=== PATIENT | male | born 1975 | race Caucasian/White ===

== ENCOUNTER 2022-03-06 16:47 | Emergency (ER) | payer BC, MEDICAID ==
[~2022-03-06] VITALS: Ht 188 cm; Wt 136.4 kg
[2022-03-06 17:45] LABS: BASOPHILS # (AUTO) 0.1 X10'3 (0-0.2); BASOPHILS % (AUTO) 0.8 % (0-1); EOSINOPHILS # (AUTO) 0.2 X10'3 (0-0.9); EOSINOPHILS % (AUTO) 2.1 % (0-6); HEMATOCRIT 42.2 % (42.0-52.0); HEMOGLOBIN 14.2 g/dl (14.0-17.9); LYMPHOCYTES # (AUTO) 2.2 X10'3 (1.1-4.8); LYMPHOCYTES % (AUTO) 22.4 % (21-51); MEAN CORPUSCULAR HEMOGLOBIN 28.2 PG (27.0-31.0); MEAN CORPUSCULAR HGB CONC 33.5 g/dL (33.0-36.5); MEAN CORPUSCULAR VOLUME 84.1 FL (78-98); MEAN PLATELET VOLUME 7.9 FL (7.4-10.4); MONOCYTES # (AUTO) 0.5 X10'3 (0-0.9); MONOCYTES % (AUTO) 5.5 % (2-12); NEUTROPHILS # (AUTO) 6.7 X10'3 (1.8-7.7); NEUTROPHILS % (AUTO) 69.2 % (42-75); PLATELET COUNT 317 X10'3 (140-440); RED BLOOD COUNT 5.02 X10'6 (4.70-6.10); RED CELL DISTRIBUTION WIDTH 13.8 % (11.5-14.5); WHITE BLOOD COUNT 9.8 X10'3 (4.5-11.0)
[2022-03-06 17:56] LABS: ALANINE AMINOTRANSFERASE 31 U/L (12-78); ALBUMIN 4.1 G/DL (3.4-5.0); ALKALINE PHOSPHATASE 74 IU/L (46-116); ANION GAP 9 (8-16); ASPARTATE AMINO TRANSFERASE 15 U/L (10-37); BILIRUBIN,TOTAL 0.8 MG/DL (0.1-1.0); BLOOD UREA NITROGEN 17 MG/DL (7-18); BUN/CREATININE RATIO 19.1 (5.4-32.0); CALCIUM 9.6 MG/DL (8.5-10.1); CHLORIDE 102 MMOL/L (99-107); CREATININE 0.89 MG/DL (0.60-1.10); GLUCOSE 98 MG/DL (70-104); POTASSIUM 3.7 MMOL/L (3.5-5.1); SODIUM 141 MMOL/L (135-145); TOTAL PROTEIN 8.2 G/DL (6.4-8.2); eGFR > 90 ML/MIN
[2022-03-06 21:39] VITALS: BP 122/78
== END 2022-03-06 21:40 | disposition home or self-care (01) ==
LOC: ER 16:48
DX: R07.89 Other chest pain (principal); I10 Essential (primary) hypertension
CPT/HCPCS: 36415; 71045; 80053; 83880; 84484; 85025; 93005; 99285

== ENCOUNTER 2023-01-09 03:13 | Emergency (ER) | payer BC ==
[~2023-01-09] VITALS: Ht 188 cm; Wt 145.4 kg
[2023-01-09] MEDS ORDERED: DOXYCYCLINE 100MG CAPSULE PO STA (04:08)
[2023-01-09] MEDS ORDERED: ipratropium/albuterol 3ml nebule NEB ONE (04:10)
[2023-01-09] MEDS ORDERED: BUDE180A INH (05:03)
[2023-01-09] MEDS ORDERED: ALBU6.7H14 INH (05:03)
[2023-01-09] MEDS ORDERED: DOXY-11 PO (05:03)
[2023-01-09 05:11] VITALS: BP 143/92
== END 2023-01-09 05:17 | disposition home or self-care (01) ==
LOC: ER 03:14
DX: J20.9 Acute bronchitis, unspecified (principal); I10 Essential (primary) hypertension
CPT/HCPCS: 71045; 94640; 94760; 99283

== ENCOUNTER 2023-05-02 11:51 | Emergency (ER) | payer BC ==
[~2023-05-02] VITALS: Ht 190.5 cm; Wt 153.2 kg
[~2023-05-02 11:51] MED LIST: ALBU6.7H14 INH; BUDE180A INH
[2023-05-02 12:55] LABS: BASOPHILS # (AUTO) 0.1 X10'3 (0-0.2); EOSINOPHILS # (AUTO) 0.2 X10'3 (0-0.9); EOSINOPHILS % (AUTO) 2.4 % (0-6); HEMATOCRIT 40.1 % (42.0-52.0); HEMOGLOBIN 13.5 g/dl (14.0-17.9); LYMPHOCYTES # (AUTO) 1.6 X10'3 (1.1-4.8); LYMPHOCYTES % (AUTO) 17.9 % (21-51); MEAN CORPUSCULAR HEMOGLOBIN 28.9 PG (27.0-31.0); MEAN CORPUSCULAR HGB CONC 33.7 g/dL (33.0-36.5); MEAN CORPUSCULAR VOLUME 85.6 FL (78-98); MEAN PLATELET VOLUME 8.2 FL (7.4-10.4); MONOCYTES # (AUTO) 0.5 X10'3 (0-0.9); MONOCYTES % (AUTO) 5.7 % (2-12); NEUTROPHILS # (AUTO) 6.6 X10'3 (1.8-7.7); PLATELET COUNT 282 X10'3 (140-440); RED BLOOD COUNT 4.68 X10'6 (4.70-6.10); RED CELL DISTRIBUTION WIDTH 13.9 % (11.5-14.5); WHITE BLOOD COUNT 9.1 X10'3 (4.5-11.0)
[2023-05-02 13:11] LABS: ALANINE AMINOTRANSFERASE 31 U/L (12-78); ALBUMIN 3.7 G/DL (3.4-5.0); ALKALINE PHOSPHATASE 83 IU/L (46-116); ANION GAP 7 (8-16); ASPARTATE AMINO TRANSFERASE 17 U/L (10-37); BILIRUBIN,TOTAL 0.5 MG/DL (0.1-1.0); BLOOD UREA NITROGEN 16 MG/DL (7-18); BUN/CREATININE RATIO 17.4 (10.0-20.0); CALCIUM 9.2 MG/DL (8.5-10.1); CHLORIDE 103 MMOL/L (99-107); CREATININE 0.92 MG/DL (0.60-1.10); GLUCOSE 106 MG/DL (70-104); POTASSIUM 3.5 MMOL/L (3.5-5.1); SODIUM 140 MMOL/L (135-145); TOTAL CARBON DIOXIDE 30.2 MMOL/L (24-32); TOTAL PROTEIN 7.4 G/DL (6.4-8.2); eCRCL 119 ML/MIN; eGFR 88 ML/MIN
[2023-05-02 13:20] LABS: PRO BRAIN NATRIURETIC PEPTIDE 32 PG/ML (0-125)
--- NOTE | 2023-05-02 17:30 | NUR ---
I have reviewed and agree with all interventions, assessments performed and documented by NELLY Garibay.
[2023-05-02 17:59] VITALS: BP 158/93; PULSE 86; RESP 18; TEMP 97.8; O2SAT 97
== END 2023-05-02 18:02 | disposition home or self-care (01) ==
LOC: ER 11:52
DX: R07.9 Chest pain, unspecified (principal)
CPT/HCPCS: 36415; 71045; 80053; 83880; 84484; 85025; 93005; 99285

== ENCOUNTER 2023-06-11 11:42 | Inpatient (IN) | payer BC ==
[~2023-06-11] VITALS: Ht 61 cm; Wt 154.0 kg
[2023-06-11 12:44] LABS: BASOPHILS % (AUTO) 0.5 % (0-1); EOSINOPHILS # (AUTO) 0.2 X10'3 (0-0.9); EOSINOPHILS % (AUTO) 2.5 % (0-6); HEMATOCRIT 38.4 % (42.0-52.0); HEMOGLOBIN 12.8 g/dl (14.0-17.9); LYMPHOCYTES # (AUTO) 1.9 X10'3 (1.1-4.8); LYMPHOCYTES % (AUTO) 23.3 % (21-51); MEAN CORPUSCULAR HEMOGLOBIN 28.4 PG (27.0-31.0); MEAN CORPUSCULAR HGB CONC 33.2 g/dL (33.0-36.5); MEAN CORPUSCULAR VOLUME 85.7 FL (78-98); MEAN PLATELET VOLUME 8.3 FL (7.4-10.4); MONOCYTES # (AUTO) 0.4 X10'3 (0-0.9); MONOCYTES % (AUTO) 4.8 % (2-12); NEUTROPHILS # (AUTO) 5.7 X10'3 (1.8-7.7); NEUTROPHILS % (AUTO) 68.9 % (42-75); PLATELET COUNT 259 X10'3 (140-440); RED BLOOD COUNT 4.48 X10'6 (4.70-6.10); RED CELL DISTRIBUTION WIDTH 13.7 % (11.5-14.5); WHITE BLOOD COUNT 8.3 X10'3 (4.5-11.0)
[2023-06-11 13:05] LABS: ALANINE AMINOTRANSFERASE 27 U/L (12-78); ALBUMIN 3.5 G/DL (3.4-5.0); ALBUMIN/GLOBULIN RATIO 0.9 (1.1-1.5); ALKALINE PHOSPHATASE 78 IU/L (46-116); ANION GAP 8 (8-16); ASPARTATE AMINO TRANSFERASE 17 U/L (10-37); BILIRUBIN,TOTAL 0.5 MG/DL (0.1-1.0); BLOOD UREA NITROGEN 17 MG/DL (7-18); BUN/CREATININE RATIO 17.2 (10.0-20.0); CALCIUM 8.8 MG/DL (8.5-10.1); CHLORIDE 106 MMOL/L (99-107); CREATININE 0.99 MG/DL (0.60-1.10); GLUCOSE 127 MG/DL (70-104); MAGNESIUM 2.1 MG/DL (1.5-2.4); POTASSIUM 3.5 MMOL/L (3.5-5.1); PRO BRAIN NATRIURETIC PEPTIDE 47 PG/ML (0-125); SODIUM 142 MMOL/L (135-145); TOTAL CARBON DIOXIDE 28.5 MMOL/L (24-32); TOTAL PROTEIN 7.2 G/DL (6.4-8.2); eCRCL 107 ML/MIN; eGFR 81 ML/MIN
[2023-06-11] MEDS ORDERED: morphine 2 MG/ML inj. syringe IV ONE (13:40)
[2023-06-11] MEDS ORDERED: aspirin 325mg tablet, delayed-release (Ecotrin) PO ONE (13:40)
[2023-06-11] MEDS ORDERED: nitroGLYCERIN 1gm ointment UD TP ONE (13:40)
[2023-06-11] MEDS ORDERED: magnesium Cl slow-release 64mg tablet PO PRN (15:25)
[2023-06-11] MEDS ORDERED: potassium Cl 40MEQ/1/2NS 520ml 520 ML IV PRN (15:25)
[2023-06-11] MEDS ORDERED: ondansetron/PF 4mg/2ml inj IV PRN (15:25)
[2023-06-11] MEDS ORDERED: potassium Cl 20 mEq SR tablet PO PRN ×2 (15:25)
[2023-06-11] MEDS ORDERED: mag hydrox/Alum hydrox/simeth 30ml oral suspension PO PRN (15:25)
[2023-06-11] MEDS ORDERED: magnesium 2GM in 50ml NS 50 ML IV PRN (15:25)
[2023-06-11] MEDS ORDERED: morphine 2 MG/ML inj. syringe IV PRN (15:25)
[2023-06-11] MEDS ORDERED: acetaminophen 325mg tablet PO PRN (15:25)
[2023-06-11] MEDS ORDERED: magnesium 4gm in 100ml NS 100 ML IV PRN (15:25)
[2023-06-11] MEDS ORDERED: magnesium hydroxide 30ml (MOM) UD suspension PO PRN (15:25)
[2023-06-11] MEDS: docusate sod 100mg capsule PO SCH (20:00)
[2023-06-11] MEDS: K and/or MAG REPLACEMENT MC SCH (20:03)
[2023-06-11] MEDS: heparin, porcine 5000 units/ml vial SQ SCH (20:42)
[2023-06-11 21:35] VITALS: BP 116/68; PULSE 74; RESP 18; TEMP 98.8; O2SAT 96
[2023-06-11] MEDS ORDERED: HYDR12.55 PO (22:44)
[2023-06-11] MEDS ORDERED: MULT-1168 PO (22:44)
[2023-06-11] MEDS ORDERED: LISI20TA28 PO (22:44)
[2023-06-11] MEDS ORDERED: ASPI81TA52 PO (22:44)
[2023-06-11] MEDS ORDERED: ATEN-169 PO (22:44)
[2023-06-11] MEDS ORDERED: HYDR25TA4 PO (22:56)
[2023-06-11] MEDS ORDERED: ATEN100T PO (22:56)
[2023-06-12 07:07] VITALS: BP 103/50; PULSE 75; RESP 18; TEMP 97.8; O2SAT 97
[2023-06-12 07:36] LABS: BASOPHILS # (AUTO) 0.1 X10'3 (0-0.2); BASOPHILS % (AUTO) 0.8 % (0-1); EOSINOPHILS # (AUTO) 0.2 X10'3 (0-0.9); EOSINOPHILS % (AUTO) 2.4 % (0-6); HEMATOCRIT 36.7 % (42.0-52.0); LYMPHOCYTES # (AUTO) 2.7 X10'3 (1.1-4.8); LYMPHOCYTES % (AUTO) 27.4 % (21-51); MEAN CORPUSCULAR HEMOGLOBIN 28.2 PG (27.0-31.0); MEAN CORPUSCULAR HGB CONC 32.7 g/dL (33.0-36.5); MEAN CORPUSCULAR VOLUME 86.3 FL (78-98); MEAN PLATELET VOLUME 8.3 FL (7.4-10.4); MONOCYTES # (AUTO) 0.8 X10'3 (0-0.9); MONOCYTES % (AUTO) 7.7 % (2-12); NEUTROPHILS # (AUTO) 6.1 X10'3 (1.8-7.7); NEUTROPHILS % (AUTO) 61.7 % (42-75); PLATELET COUNT 248 X10'3 (140-440); RED BLOOD COUNT 4.26 X10'6 (4.70-6.10); RED CELL DISTRIBUTION WIDTH 14.3 % (11.5-14.5); WHITE BLOOD COUNT 9.9 X10'3 (4.5-11.0)
[2023-06-12] MEDS: docusate sod 100mg capsule PO SCH ×2 (08:00→20:34)
[2023-06-12] MEDS: K and/or MAG REPLACEMENT MC SCH ×2 (08:00→20:28)
[2023-06-12 09:38] LABS: ALANINE AMINOTRANSFERASE 26 U/L (12-78); ALBUMIN 3.2 G/DL (3.4-5.0); ALKALINE PHOSPHATASE 61 IU/L (46-116); ANION GAP 10 (8-16); ASPARTATE AMINO TRANSFERASE 15 U/L (10-37); BILIRUBIN,TOTAL 0.6 MG/DL (0.1-1.0); BLOOD UREA NITROGEN 16 MG/DL (7-18); BUN/CREATININE RATIO 17.2 (10.0-20.0); CALCIUM 8.7 MG/DL (8.5-10.1); CHLORIDE 105 MMOL/L (99-107); CHOL/HDL RATIO 4.1 (0.00-4.99); CHOLESTEROL 158 MG/DL (0-200); CREATININE 0.93 MG/DL (0.60-1.10); GLUCOSE 93 MG/DL (70-104); HDL CHOLESTEROL 39 MG/DL (35-60); LDL CHOLESTEROL 104 MG/DL (50-100); MAGNESIUM 2.1 MG/DL (1.5-2.4); PHOSPHORUS 4.2 MG/DL (2.3-4.5); POTASSIUM 3.5 MMOL/L (3.5-5.1); SODIUM 141 MMOL/L (135-145); TOTAL CARBON DIOXIDE 25.9 MMOL/L (24-32); TOTAL PROTEIN 6.5 G/DL (6.4-8.2); TRIGLYCERIDES 83 MG/DL (20-135); eGFR 87 ML/MIN
[2023-06-12 09:44] LABS: THYROID STIMULATING HORMONE 1.11 ulU/ml (0.34-4.50)
[2023-06-12] MEDS: heparin, porcine 5000 units/ml vial SQ SCH ×2 (09:55→20:35)
[2023-06-12 10:00] VITALS: BP 106/67; PULSE 82; RESP 15; TEMP 97.9; O2SAT 96
[2023-06-12] MEDS: sotalol 80mg tablet PO SCH ×2 (13:51→20:34)
[2023-06-12 13:53] VITALS: BP 112/50; PULSE 76
[2023-06-12 18:00] VITALS: BP 112/47; PULSE 63; RESP 16; TEMP 98.6; O2SAT 95
[2023-06-12] MEDS ORDERED: nitroGLYCERIN 0.4mg SUBLingual tab SL PRN (19:10)
[2023-06-12] MEDS ORDERED: aminophylline 250mg/10ml inj. IV PRN (19:10)
[2023-06-12] MEDS ORDERED: metoprolol tartrate 1mg/ml inj IV PRN (19:10)
[2023-06-12] MEDS ORDERED: regadenoson 0.4mg/5ml syringe IV PRN (19:10)
[2023-06-12 20:00] VITALS: RESP 16; O2SAT 95
[2023-06-12 22:00] VITALS: BP 107/66; PULSE 80; RESP 16; TEMP 98.1; O2SAT 100
[2023-06-13] VITALS (9 sets, daily range): BP systolic 112–129; BP diastolic 60–78; PULSE 67–101; RESP 18; TEMP 97–97.2; O2SAT 96–99
[2023-06-13 06:16] LABS: BASOPHILS # (AUTO) 0.1 X10'3 (0-0.2); BASOPHILS % (AUTO) 0.8 % (0-1); EOSINOPHILS # (AUTO) 0.3 X10'3 (0-0.9); EOSINOPHILS % (AUTO) 3.2 % (0-6); HEMATOCRIT 37.5 % (42.0-52.0); HEMOGLOBIN 12.5 g/dl (14.0-17.9); LYMPHOCYTES # (AUTO) 2.8 X10'3 (1.1-4.8); LYMPHOCYTES % (AUTO) 32.7 % (21-51); MEAN CORPUSCULAR HEMOGLOBIN 28.6 PG (27.0-31.0); MEAN CORPUSCULAR HGB CONC 33.2 g/dL (33.0-36.5); MEAN CORPUSCULAR VOLUME 85.9 FL (78-98); MEAN PLATELET VOLUME 8.2 FL (7.4-10.4); MONOCYTES # (AUTO) 0.6 X10'3 (0-0.9); MONOCYTES % (AUTO) 7.3 % (2-12); NEUTROPHILS # (AUTO) 4.9 X10'3 (1.8-7.7); PLATELET COUNT 256 X10'3 (140-440); RED BLOOD COUNT 4.36 X10'6 (4.70-6.10); RED CELL DISTRIBUTION WIDTH 13.9 % (11.5-14.5); WHITE BLOOD COUNT 8.7 X10'3 (4.5-11.0)
[2023-06-13 06:18] LABS: ALANINE AMINOTRANSFERASE 26 U/L (12-78); ALBUMIN 3.1 G/DL (3.4-5.0); ALBUMIN/GLOBULIN RATIO 0.9 (1.1-1.5); ALKALINE PHOSPHATASE 66 IU/L (46-116); ANION GAP 9 (8-16); ASPARTATE AMINO TRANSFERASE 13 U/L (10-37); BILIRUBIN,TOTAL 0.5 MG/DL (0.1-1.0); BLOOD UREA NITROGEN 18 MG/DL (7-18); BUN/CREATININE RATIO 20.5 (10.0-20.0); CALCIUM 8.4 MG/DL (8.5-10.1); CHLORIDE 105 MMOL/L (99-107); CREATININE 0.88 MG/DL (0.60-1.10); GLUCOSE 93 MG/DL (70-104); PHOSPHORUS 4.4 MG/DL (2.3-4.5); POTASSIUM 3.6 MMOL/L (3.5-5.1); SODIUM 140 MMOL/L (135-145); TOTAL CARBON DIOXIDE 26.4 MMOL/L (24-32); TOTAL PROTEIN 6.5 G/DL (6.4-8.2); eGFR > 90 ML/MIN
[2023-06-13] MEDS: K and/or MAG REPLACEMENT MC SCH (06:48)
[2023-06-13] MEDS: sotalol 80mg tablet PO SCH (07:24)
[2023-06-13] MEDS: docusate sod 100mg capsule PO SCH (07:27)
[2023-06-13] MEDS: heparin, porcine 5000 units/ml vial SQ SCH (07:29)
[2023-06-13] MEDS ORDERED: aspirin 81mg, enteric-coated 1 TAB TABLET.DR PO SCH (08:00)
[2023-06-13] MEDS ORDERED: ondansetron 4mg rapidly disintigrating tab PO PRN (11:19)
[2023-06-13] MEDS ORDERED: SOTA80TA73 PO (12:57)
== END 2023-06-13 14:00 | disposition home or self-care (01) | DRG 310 ==
LOC: ER 11:43 → ED HOLD 15:25 → ORTHO 4S 21:35
PROVIDERS: ADMIT Internal Medicine; ATTEND Internal Medicine
PROC: 4A02XM4 Measurement of Cardiac Total Activity, External Approach (ICD-10-PCS; principal; 2023-06-13)
PROC: 3E073KZ Introduction of Other Diagnostic Substance into Coronary Artery, Percutaneous Approach (ICD-10-PCS; 2023-06-13)
DX: I47.10 Supraventricular tachycardia, unspecified (principal); I10 Essential (primary) hypertension; F10.90 Alcohol use, unspecified, uncomplicated; J45.909 Unspecified asthma, uncomplicated; Z90.49 Acquired absence of other specified parts of digestive tract; Z79.82 Long term (current) use of aspirin; Z79.899 Other long term (current) drug therapy
CPT/HCPCS: 36415; 71045; 78452; 80053; 80061; 83735; 83880; 84100; 84443; 84484; 85025; 85379; 87081; 93005; 93017; 93306; 99285; A9500; G0378; J1644; J2270; J2785

== ENCOUNTER 2023-11-23 14:15 | Emergency (ER) | payer BC, OTHER ==
[~2023-11-23] VITALS: Ht 185.4 cm; Wt 145.0 kg
[~2023-11-23 14:15] MED LIST changes: -ALBU6.7H14 INH; +ASPI81TA52 PO; -BUDE180A INH; +HYDR25TA4 PO; +LISI20TA28 PO; +MULT-1168 PO; +SOTA80TA73 PO
[2023-11-23 14:30] VITALS: BP 126/78; PULSE 92; TEMP 98.8; O2SAT 98
[2023-11-23] MEDS: cyclobenzaprine 10mg tablet PO ONE (16:03)
[2023-11-23] MEDS: HYDROcodone/acetaminophen 10/325mg tab PO ONE (16:03)
[2023-11-23] MEDS: dexamethasone sod phosphate 10mg/ml inj IM STA (16:04)
[2023-11-23] MEDS: ketorolac tromethamine 15mg/ml inj. IM ONE (16:04)
[2023-11-23 16:50] VITALS: RESP 16
[2023-11-23] MEDS ORDERED: HYDR-3965 PO (17:33)
[2023-11-23] MEDS ORDERED: CYCL-1 PO (17:33)
[2023-11-23] MEDS ORDERED: LIDO700A32 TOP (17:33)
== END 2023-11-23 18:33 | disposition home or self-care (01) ==
LOC: ER 14:16
DX: S39.012A Strain of muscle, fascia and tendon of lower back, initial encounter (principal); S80.02XA Contusion of left knee, initial encounter; I10 Essential (primary) hypertension; Z79.82 Long term (current) use of aspirin; Z79.899 Other long term (current) drug therapy; X58.XXXA Exposure to other specified factors, initial encounter; Y93.89 Activity, other specified; Y92.89 Other specified places as the place of occurrence of the external cause; Y99.8 Other external cause status
CPT/HCPCS: 72100; 73564; 96372; 99284; J1100; J1885

== ENCOUNTER 2025-01-10 17:47 | Emergency (ER) | payer BC, OTHER ==
[~2025-01-10] VITALS: Ht 188 cm; Wt 151.4 kg
[~2025-01-10 17:47] MED LIST changes: +CYCL-1 PO; +LIDO-52 TOP
--- NOTE | 2025-01-10 18:02 | Physician Documentation ---
History of Present Illness ~ Chief Complaint: Shortness of Breath Stated Complaint: DIFFICULTY BREATHING Time Seen by MD: 23:12 Primary Medical Doctor: Dr. Bueno [facility] HPI This is a 49-year-old male who presents with one month of progressively worsening shortness of breath, patient reports that when he was at home earlier today he used a home pulse oximeter that showed SpO2 of 60%. History as above. Time of onset over this past month has been gradual and worsening. Medication Reconciliation Allergies: Coded Allergies: No Known Allergies (Unverified , 01/10/25) Scheduled Aspirin (Aspirin EC), 1 TAB PO QAM, (Reported) Cyclobenzaprine* (Cyclobenzaprine*), 1 TAB PO HS Hydrochlorothiazide (Hydrochlorothiazide), 1 TAB PO QAM, (Reported) Lidocaine (Lidoderm), 1 PATCH TOP DAILY Lisinopril (Lisinopril), 1 TAB PO QAM, (Reported) Multivit-Min/FA/Lycopen/Lutein (Men 50 Plus Multivitamin Tab), 1 TAB PO QAM, (Reported) Sotalol Hcl* (Betapace*), 80 MG PO BID Past Medical History Past Medical History: Hypertension Past Surgical History: no surgical history Alcohol Use: Occasionally Drug Use: none Lives with: Family Lives In: Home Occupation: employed Review of Systems ROS All review of systems negative except as per HPI Physical Exam Vital Signs: Temperature: 97.8, Source: Temporal, Heart Rate: 95, Respiratory Rate: 18, BP: 144/90, Pulse Oximetry: 97, Weight: 151.400 Physical Exam General: Patient is awake, alert, oriented x4 in no acute distress and well appearing.~ Head: Normocephalic and atraumatic. Eyes: Conjunctival normal. EOMI. PERRL. ENT: Mucous membranes moist. Neck: Supple, trachea is midline. Chest: Clear to auscultation bilaterally without rales, rhonchi, or wheezes. There is no accessory muscle use or retractions. Cardiac: RRR without murmurs, gallops, or rubs. Extremities: Normal strength. Normal range of motion. No deformities or edema. No calf tenderness to palpation Progress Results/Orders Results/Orders Completed Orders - XANDER EUGENE MD D-Dimer (01/10/25 23:30) Vital Signs 01/10/25 01/10/25 17:53 20:10 Temp 97.8 98.2 Pulse 95 98 Resp 18 16 B/P (MAP) 144/90 125/83 (97) Pulse Ox 97 98 O2 Flow Rate 0 Laboratory Tests Test 01/10/25 18:02 01/10/25 19:47 01/10/25 20:47 01/10/25 23:40 White Blood Count 11.4 H Red Blood Count 5.01 Hemoglobin 14.5 Hematocrit 42.2 Mean Corpuscular Volume 84.2 Mean Corpuscular Hemoglobin 28.9 Mean Corpuscular Hemoglobin Concent 34.3 Red Cell Distribution Width 14.1 Platelet Count 352 Mean Platelet Volume 8.0 Neutrophils (%) (Auto) 70.0 Lymphocytes (%) (Auto) 22.1 Monocytes (%) (Auto) 4.8 Eosinophils (%) (Auto) 2.4 Basophils (%) (Auto) 0.7 Neutrophils # (Auto) 8.0 H Lymphocytes # (Auto) 2.5 Monocytes # (Auto) 0.5 Eosinophils # (Auto) 0.3 Basophils # (Auto) 0.1 CBC Comment Sodium Level 139 Potassium Level 3.8 Chloride Level 102 Carbon Dioxide Level 28.7 Anion Gap 8 Blood Urea Nitrogen 20 H Creatinine 1.08 Estimated GFR/1.73 m2 73 BUN/Creatinine Ratio 18.5 Glucose Level 105 H Calcium Level 9.1 Troponin I High Sensitivity 4 < 4 L < 4 L Pro-B-Type Natriuretic Peptide < 30 Albumin 3.7 Chemistry Comments Troponin I High Sens Percent Delta Troponin I Hi Sens Absolute Change D-Dimer 0.23 D-Dimer Comment EKG/XRAY/CT/US/VASC/MRI EKG : Additional Comment EKG interpreted by myself shows time of 18 20, rate 97, sinus rhythm, normal axis, no ST changes Medical Decision Making Findings Patient presented to the emergency room for evaluation of shortness of breath as per HPI. Differentials include but are not limited to pneumonia, anxiety, pulmonary embolism, pneumothorax, CHF therefore emergent labs and imaging indicated. D-dimer reassuring. All workup is reassuring. Unknown cause for patient's subjective shortness of breath. He is saturating 99% on room air. The need to follow up with his doctor discussed. Departure Disposition: HOME / SELF CARE / HOMELESS Impression: Primary Impression: Dyspnea Condition: Stable Discharge Instructions: Shortness of Breath, Adult Additional Instructions: Follow up with your doctor Referrals: NO PRIMARY CARE PROVIDER (PCP) Signature Scribe Signature: No scribe Attestation: The note accurately reflects work and decisions made by me.Xander Eugene MD 01/11/25 00:32 STEPHANIE THOMAS Jan 10, 2025 18:02 XANDER EUGENE MD Jan 10, 2025 23:30
[2025-01-10 18:09] LABS: MEAN PLATELET VOLUME 8.0 FL (7.4-10.4); RED CELL DISTRIBUTION WIDTH 14.1 % (11.5-14.5)
--- NOTE | 2025-01-10 18:19 | RADIOLOGY REPORT ---
CHEST RADIOGRAPH Indication: CP Technique: Single frontal view of the chest was obtained Comparison: DI CHEST,SINGLE VIEW on DOS: 06/11/23, DI CHEST,SINGLE VIEW on DOS: 05/02/23, CHEST,SINGLE VIEW on DOS: 01/09/23 FINDINGS: Lines and Tubes: None Lungs: No focal consolidation. Pleura: No effusion. No pneumothorax. Cardiomediastinal contours: Unremarkable. Suggested cardiac loop recorder / overlies the left medial mid to lower lung zone Bones: No acute osseous abnormality. IMPRESSION: No acute cardiopulmonary disease.
--- NOTE | 2025-01-10 18:22 | ELECTROCARDIOGRAPH REPORT ---
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
[2025-01-10 18:35] LABS: CREATININE 1.08 MG/DL (0.60-1.10); PRO BRAIN NATRIURETIC PEPTIDE < 30 PG/ML (0-125); TOTAL CARBON DIOXIDE 28.7 MMOL/L (24-32); eCRCL 96 ML/MIN; eGFR 73 ML/MIN
[2025-01-11 00:40] VITALS: BP 129/82; PULSE 86; TEMP 98.2; O2SAT 95
[2025-01-11 00:42] VITALS: RESP 10
== END 2025-01-11 00:45 | disposition home or self-care (01) ==
LOC: ER 17:47
DX: R06.02 Shortness of breath (principal); I10 Essential (primary) hypertension; Z88.6 Allergy status to analgesic agent; Z79.82 Long term (current) use of aspirin; Z79.899 Other long term (current) drug therapy; Z72.89 Other problems related to lifestyle
CPT/HCPCS: 36415; 71045; 80048; 83880; 84484; 85025; 85379; 93005; 99285

== ENCOUNTER 2025-05-23 16:40 | Emergency (ER) | payer BC ==
[~2025-05-23] VITALS: Ht 188 cm; Wt 140.9 kg
--- NOTE | 2025-05-23 17:07 | Physician Documentation ---
History of Present Illness ~ Chief Complaint: Back Pain Stated Complaint: BACK PAIN Time Seen by MD: 16:53 Primary Medical Doctor: Dr. 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 starting last night. Patient states he has been diagnosed with an L3 bulge disc which is putting pressure on the nerve per acutely he has been experiencing stool and urine incontinence with increased tingling. Reports having numbness since the original injury in November of 2023 still has lower back pain. Day of Onset: May 23, 2025 Medication Reconciliation Allergies: Coded Allergies: No Known Allergies (Unverified , 05/23/25) Scheduled Aspirin (Aspirin EC), 1 TAB PO QAM, (Reported) Cyclobenzaprine* (Cyclobenzaprine*), 1 TAB PO HS Hydrochlorothiazide (Hydrochlorothiazide), 1 TAB PO QAM, (Reported) Lidocaine (Lidoderm), 1 PATCH TOP DAILY Lisinopril (Lisinopril), 1 TAB PO QAM, (Reported) Multivit-Min/FA/Lycopen/Lutein (Men 50 Plus Multivitamin Tab), 1 TAB PO QAM, (Reported) Sotalol Hcl* (Betapace*), 80 MG PO BID Past Medical History Past Medical History: Hypertension Past Surgical History: no surgical history Alcohol Use: Occasionally Drug Use: none Lives with: Family Lives In: Home Occupation: employed Review of Systems All Other Systems at this time: Reviewed and Negative ROS As stated above in the HPI, otherwise all systems are reviewed and negative. Physical Exam Physical Exam Vital Signs: Temperature: 97.6, Source: Temporal, Heart Rate: 102, Respiratory Rate: 18, BP: 137/76, Pulse Oximetry: 96, Weight: 140.910 Physical Exam General: Alert, no apparent distress. Cardiovascular: Regular rate and rhythm, no murmurs. back: Tender to the lumbar region via palpation Extremities: Normal range of motion, no deformity. Neurologic: Oriented x4. diminished reflexes Psychiatric: Normal mood and affect. Skin: Normal color, warm and dry. No edema, no ecchymosis. Progress Results/Orders Results/Orders Completed Orders - XANDER EUGENE MD Hydrocodone/Apap 10/325 (Cross 10/325mg (05/23/25 19:20) Ondansetron Disint. Tablet (Zofran Odt T (05/23/25 19:20) Medications Received in ER Medications (Trade) Dose Ordered Sig/Emiliana Route PRN Reason Start Time Stop Time Status Last Admin Dose Admin (Cross 10/325mg tab) 1 tab ONCE ONCE PO 05/23/25 19:20 05/23/25 19:21 DC 05/23/25 19:23 1 TAB (Zofran ODT tablet) 4 mg ONCE ONCE PO 05/23/25 19:20 05/23/25 19:21 DC 05/23/25 19:23 4 MG Vital Signs 05/23/25 05/23/25 16:51 19:27 Temp 97.6 97.6 Pulse 102 91 Resp 18 18 B/P (MAP) 137/76 111/63 (79) Pulse Ox 96 97 Medical Decision Making Additional information obtaine: N/A Findings Patient presented to the emergency room sent from outside clinic for concerns for cauda equina. Differentials include but are not limited to cauda equina, m edication reaction, radiculopathy, dehydration therefore MRI performed which was reassuring for no cauda equina. Bladder scan that has reassuring for no urinary retention. Differential Dx:Considerations: Departure Disposition: 01 HOME / SELF CARE / HOMELESS Impression: Primary Impression: Back problem Condition: Stable Discharge Instructions: Chronic Back Pain Referrals: NO PRIMARY CARE PROVIDER (PCP) Signature Scribe Signature: No scribe Attestation: The note accurately reflects work and decisions made by me.Xander Eugene MD 05/23/25 19:43 ALVERTO CROOKS NP May 23, 2025 17:07 XANDER EUGENE MD May 23, 2025 19:43
--- NOTE | 2025-05-23 19:20 | RADIOLOGY REPORT ---
EXAM: MR MRI LUMBAR SPINE CLINICAL HISTORY: neuropathy lumbar spine COMPARISON: DI LUMBAR SPINE LIMITED on DOS: 11/23/23 Technique: MRI of the lumbar spine was performed without contrast. Findings: Vertebral body height is maintained. Vertebral alignment is anatomic. Degenerate endplate changes. The conus medullaris is normal in position and signal intensity. L1-L2: No significant spinal canal or foraminal stenosis. L2-L3: No significant spinal canal or foraminal stenosis. L3-L4: Disc bulge with superimposed left subarticular disc protrusion as well as facet arthropathy. Mild right and moderate to severe left foraminal stenosis. No significant spinal canal narrowing. L4-L5: Disc bulge with facet arthropathy. No significant spinal canal or foraminal stenosis. L5-S1: Disc bulge with facet arthropathy. Moderate bilateral foraminal stenosis and mild bilateral subarticular zone stenosis. No central canal narrowing. Mild paraspinal edema likely reactive. IMPRESSION: Multilevel degenerative changes of the lumbar spine as described that is most pronounced at L3-L4 where there is moderate to severe left foraminal stenosis. No significant spinal canal stenosis.
[2025-05-23] MEDS: ondansetron 4mg rapidly disintigrating tab PO ONE (19:23)
[2025-05-23] MEDS: HYDROcodone/acetaminophen 10/325mg tab PO ONE (19:23)
[2025-05-23 19:27] VITALS: BP 111/63; PULSE 91; RESP 18; O2SAT 97
[2025-05-23 20:07] VITALS: TEMP 97.6
== END 2025-05-23 20:10 | disposition home or self-care (01) ==
LOC: ER 16:40
DX: M54.50 Low back pain, unspecified (principal); I10 Essential (primary) hypertension; Z79.82 Long term (current) use of aspirin; Z79.899 Other long term (current) drug therapy; Z72.89 Other problems related to lifestyle
CPT/HCPCS: 72148; 99284